=== PATIENT | female | born 1975 | race African-American/Black ===

== ENCOUNTER 2017-01-18 11:11 | Emergency (ER) | payer MEDICAID ==
[~2017-01-18] VITALS: Ht 170.2 cm; Wt 108.0 kg
[~2017-01-18 11:11] MED LIST: PREN-88 PO
[2017-01-18 13:04] LABS: BASOPHILS % 0.4 % (0.0-2.0); EOSINOPHILS % 0.7 % (0.0-5.0); HEMATOCRIT. 32.2 % (36.0-48.0); HEMOGLOBIN. 10.5 g/dL (12.0-16.0); LYMPHOCYTES % 15.2 % (20.0-50.0); MEAN CORPUSCULAR HEMOGLOBIN 27.6 pg (28.0-32.0); MEAN CORPUSCULAR HGB CONC 32.7 g/dL (31.0-37.0); MEAN CORPUSCULAR VOLUME 84.4 fL (81.0-99.0); MEAN PLATELET VOLUME 7.3 fl (7.4-10.4); MONOCYTES % 7.5 % (2.0-8.0); NEUTROPHILS % 76.2 % (40.0-76.0); PLATELET 260 x1000/uL (130-400); RED BLOOD CELL COUNT 3.82 mill/uL (4.2-5.4); WHITE BLOOD COUNT 7.7 x1000/uL (4.5-11.0)
[2017-01-18 13:09] LABS: CHLORIDE 102 mEq/L (98-107)
[2017-01-18 13:20] LABS: ANION GAP 11; B-HCG QUANTITATIVE 67 mIU/mL (<3); CALCIUM 8.4 mg/dL (8.5-10.1); CARBON DIOXIDE 29 mEq/L (21-32); INDEX HEMOLYSI 1 (1-3); INDEX ICTERIC 1 (1-4); INDEX LIPEMIC 1 (1-3); UREA NITROGEN BLOOD 7 mg/dL (7-21); eGFR > 60 mL/min (>60)
[2017-01-18] MEDS ORDERED: POTASSIUM CHLORIDE 20MEQ TABLET SR PO ONE (13:30)
[2017-01-18 14:17] VITALS: BP 131/81
[2017-01-18 14:20] LABS: CLARITY URINE CLEAR (CLEAR); COLOR URINE DARK YELLOW (YELLOW); GLUCOSE URINE NEGATIVE (NEGATIVE); KETONES URINE NEGATIVE (NEGATIVE); LEUKOCYTE ESTERASE URINE 2+ (NEGATIVE); NITRITE URINE POSITIVE (NEGATIVE); OCCULT BLOOD URINE 3+ (NEGATIVE); PH URINE 6.5 (4.5-8.0); PROTEIN URINE 1+ (NEGATIVE); SPECIFIC GRAVITY URINE 1.033 (1.005-1.030)
[2017-01-18 14:50] LABS: MUCUS URINE 2+ /lpf (< = 2+); SQUAMOUS EPITHELIAL CELL URINE 2+ /lpf (RARE/1+)
[2017-01-18 14:51] LABS: CALCIUM OXALATE CRYSTALS URINE 1+ /lpf; RBC URINE 50-100 /hpf (0-2)
[2017-01-18 14:52] LABS: BACTERIA URINE 2+
== END 2017-01-18 14:57 | disposition home or self-care (01) ==
LOC: ER 12:02
DX: O03.9 Complete or unspecified spontaneous abortion without complication (principal); O23.41 Unspecified infection of urinary tract in pregnancy, first trimester; N39.0 Urinary tract infection, site not specified; O99.011 Anemia complicating pregnancy, first trimester; D64.9 Anemia, unspecified; O99.331 Smoking (tobacco) complicating pregnancy, first trimester; F17.200 Nicotine dependence, unspecified, uncomplicated; Z3A.01 Less than 8 weeks gestation of pregnancy; O02.81 Inappropriate change in quantitative human chorionic gonadotropin (hCG) in early pregnancy
CPT/HCPCS: 36415; 76830; 76856; 80048; 81001; 81025; 84702; 85025; 86850; 86900; 86901; 99285; 99406; Z7610